=== PATIENT | male | born 1980 | race African-American/Black ===

== ENCOUNTER 2020-02-02 16:21 | Emergency (ER) | payer MEDICAID ==
[~2020-02-02] VITALS: Ht 175.3 cm; Wt 62.6 kg
[2020-02-02] MEDS ORDERED: GRALISE600 MG PO (16:32)
[2020-02-02] MEDS ORDERED: LEXAPRO5 MG PO (16:33)
[2020-02-02] MEDS ORDERED: HYDROXYZIN10 MG/5 ML PO (16:34)
[2020-02-02 16:54] LABS: ABSOLUTE EOSINOPHILS 0.1 thou/uL (0.0-0.7); ABSOLUTE LYMPHOCYTES 1.2 thou/uL (0.8-5.3); ABSOLUTE MONOCYTES 0.6 thou/uL (0.0-1.2); BASOPHILS 0.3 %; EOSINOPHILS 0.5 %; HEMATOCRIT 48.2 % (42.0-52.0); HEMOGLOBIN 16.6 gm/dL (14.0-18.0); LYMPHOCYTES 10.7 %; MCH 34.5 pg (26.0-34.0); MCHC 34.4 g/dL (28.0-37.0); MCV 100.2 fL (80.0-100.0); MONOCYTES 5.7 %; MPV 10.1 fl. (7.2-11.1); NUCLEATED RBCS 0 /100WBC; PLATELET COUNT* 210 thou/uL (150-400); POLYS 82.8 %; RBC 4.81 mil/uL (4.50-6.00); RDW-CV 15.4 % (10.5-14.5); WBC 10.9 thou/uL (4.0-11.0)
[2020-02-02 17:02] LABS: CALCIUM 9.3 mg/dL (8.5-10.1); CREATININE 1.3 mg/dL (0.6-1.3)
[2020-02-02 17:03] LABS: POTASSIUM 2.9 mmol/L (3.5-5.1)
[2020-02-02 17:07] LABS: ALBUMIN 4.1 g/dL (3.4-5.0); TOTAL BILIRUBIN 0.7 mg/dL (<0.1-1.0); TOTAL PROTEIN 7.5 g/dL (6.4-8.2)
[2020-02-02 18:13] VITALS: BP 111/67
== END 2020-02-02 18:15 | disposition home or self-care (01) ==
LOC: M.ERS 16:21
PROVIDERS: Personal Emergency Response Attendant
DX: E87.6 Hypokalemia (principal); F41.9 Anxiety disorder, unspecified; F32.9 Major depressive disorder, single episode, unspecified; Y08.89XA Assault by other specified means, initial encounter; Y93.89 Activity, other specified; Y92.89 Other specified places as the place of occurrence of the external cause; Y99.8 Other external cause status